=== PATIENT | male | born 1955 | race Caucasian/White ===

== ENCOUNTER 2022-09-10 06:38 | Day surgery (SDC) | payer BC ==
[2022-09-09 09:17] VITALS: BMI 34.2
[2022-09-10] MEDS ORDERED: Lidocaine 2% MPF 10 ML AMP (For Epidural Use) ONE (07:55)
[2022-09-10] MEDS ORDERED: PROPOFOL 40 ML ONE (07:55)
[2022-09-10] MEDS ORDERED: Succinylcholine 200 MG/10 ml SYRINGE FS ONE (08:44)
[2022-09-10] MEDS ORDERED: Ondansetron PF 4 MG/2 ML Vial ONE (09:08)
[2022-09-10] MEDS ORDERED: ePHEDrine Sulfate 50 MG/10 ML VIAL ONE (09:15)
== END 2022-09-10 10:20 | disposition home or self-care (01) ==
LOC: CSHSDC 06:38
PROVIDERS: ATTEND Surgery
PROC: 0DB78ZX Excision of Stomach, Pylorus, Via Natural or Artificial Opening Endoscopic, Diagnostic (ICD-10-PCS; principal; 2022-09-10)
PROC: 0DB38ZX Excision of Lower Esophagus, Via Natural or Artificial Opening Endoscopic, Diagnostic (ICD-10-PCS; principal; 2022-09-10)
DX: K21.00 Gastro-esophageal reflux disease with esophagitis, without bleeding (principal); K29.50 Unspecified chronic gastritis without bleeding; K22.70 Barrett's esophagus without dysplasia; K31.1 Adult hypertrophic pyloric stenosis; K44.9 Diaphragmatic hernia without obstruction or gangrene; R13.19 Other dysphagia; K43.2 Incisional hernia without obstruction or gangrene; Z79.899 Other long term (current) drug therapy; Z88.5 Allergy status to narcotic agent; Z88.8 Allergy status to other drugs, medicaments and biological substances; Z98.890 Other specified postprocedural states
CPT/HCPCS: 88305; 88313; 88342; J2405; J2704

== ENCOUNTER 2022-11-26 05:49 | Day surgery (SDC) | payer BC ==
[2022-11-25 14:45] VITALS: BMI 33.6
[2022-11-26] MEDS ORDERED: Famotidine/PF 20 mg/2ml Vial ONE (07:28)
[2022-11-26] MEDS ORDERED: Succinylcholine 200 MG/10 ml SYRINGE FS ONE (07:31)
[2022-11-26] MEDS ORDERED: Ondansetron PF 4 MG/2 ML Vial ONE (07:31)
[2022-11-26] MEDS ORDERED: Dexamethasone 4 mg/ml Vial ONE (07:31)
[2022-11-26] MEDS ORDERED: PROPOFOL 20 ML ONE ×2 (07:31→08:26)
[2022-11-26] MEDS ORDERED: Lidocaine 2% MPF 10 ML AMP (For Epidural Use) ONE (07:31)
[2022-11-26] MEDS ORDERED: Metoclopramide HCl 10 MG/2 ML VIAL ONE (07:31)
[2022-11-26] MEDS ORDERED: Fentanyl 100 MCG/2 ML VIAL ONE (07:50)
[2022-11-26] MEDS ORDERED: PHENYLEPHRINE-NS 100 MCG/ML 10 ML SYRINGE ONE (07:54)
[2022-11-26] MEDS ORDERED: ePHEDrine Sulfate 50 MG/10 ML VIAL ONE (08:03)
== END 2022-11-26 11:35 | disposition home or self-care (01) ==
LOC: CSHSDC 05:49
PROVIDERS: ATTEND Surgery
PROC: 0DH68YZ Insertion of Other Device into Stomach, Via Natural or Artificial Opening Endoscopic (ICD-10-PCS; principal; 2022-11-26)
DX: K31.1 Adult hypertrophic pyloric stenosis (principal); R13.19 Other dysphagia; K21.00 Gastro-esophageal reflux disease with esophagitis, without bleeding; E66.9 Obesity, unspecified; Z68.33 Body mass index [BMI] 33.0-33.9, adult; K21.9 Gastro-esophageal reflux disease without esophagitis; K44.9 Diaphragmatic hernia without obstruction or gangrene; Z88.8 Allergy status to other drugs, medicaments and biological substances; Z88.5 Allergy status to narcotic agent
CPT/HCPCS: 74330; 76000; J1100; J2405; J2704; J2765; J3010; S0028